=== PATIENT | male | born 1940 | race Caucasian/White ===

== ENCOUNTER → 2017-05-27 | Outpatient (REF) | payer MEDICARE, BC ==
[2017-05-27 22:01] LABS: ERYTHROCYTE SEDIMENTATION RATE 6 mm/hr (0-20)
[2017-05-27 23:12] LABS: RHEUMATOID FACTOR QUANT < 10.0 IU/ML (<15.0); THYROID STIMULATING HORMONE 0.799 uIU/ML (0.358-3.740)
[2017-05-27 23:37] LABS: VITAMIN B12 LEVEL 197 PG/ML
[2017-05-27 23:38] LABS: FOLATE 14.9 NG/ML
== END ==
LOC: M LABNEURO 13:27
DX: G62.9 Polyneuropathy, unspecified (principal); R55 Syncope and collapse
CPT/HCPCS: 82746

== ENCOUNTER → 2020-08-21 | Outpatient (CLI) | payer MEDICARE, BC ==
--- NOTE | 2020-08-22 07:39 | PFTRPT ---
Height: 70.00 Inches Weight: 220.00 Lbs BSA: 2.17 Diagnosis: R05 DATE: 08/21/2020 ORDERED BY: Dinesh De Souza M.D. Pre and post bronchodilator studies have excellent technical quality. Forced vital capacity is normal. FEV1 is in proportion. Obstructive index is therefore normal. Expiratory limit of the flow-volume loop is normal. No significant bronchodilator response is identified. Total lung capacity is normal. Residual volume is generally in proportion. Diffusing capacity is normal. No hemoglobin available for correction. Airway resistance and conductance are normal. IMPRESSION: Normal study. MTDD
== END ==
LOC: M CARPUL 13:50
PROVIDERS: ATTEND Internal Medicine Cardiovascular Disease
DX: R05 Cough (principal)